=== PATIENT | male | born 1965 | race Caucasian/White ===

== ENCOUNTER → 2024-09-30 | Outpatient (CLI) | payer MEDICARE, MEDICAID, SELFPAY ==
--- NOTE | 2024-09-30 | XR_ITS ---
Examination: Shoulder,right, 3 views Technique: Shoulder AP internal rotation, AP external rotation, Y view shoulder, 3 views Exam date and time :September 30, 2024 1258 hours INDICATIONS: Lifting injury to the shoulder 2 weeks ago, shoulder pain. FINDINGS: No fracture or shoulder dislocation. Mild narrowing glenohumeral joint. Mild right shoulder calcific tendinitis IMPRESSION: No shoulder fracture Mild right shoulder calcific tendinitis
== END | disposition home or self-care (01) ==
PROVIDERS: PCP Physician Assistant; Referring Provider Physician Assistant; Visit Provider Physician Assistant
DX: M75.31 Calcific tendinitis of right shoulder (principal); S49.91XA Unspecified injury of right shoulder and upper arm, initial encounter; X58.XXXA Exposure to other specified factors, initial encounter
CPT/HCPCS: 73030

== ENCOUNTER → 2024-11-06 | Outpatient (CLI) | payer MEDICARE, MEDICAID, SELFPAY ==
[2024-11-06 11:49] LABS: Prostate Specific Antigen 0.65 ng/mL (0-4.00)
== END | disposition home or self-care (01) ==
PROVIDERS: PCP Physician Assistant; Referring Provider Surgery; Visit Provider Surgery
DX: N40.1 Benign prostatic hyperplasia with lower urinary tract symptoms (principal)
CPT/HCPCS: 36415; 84153